=== PATIENT | male | born 1940 | race Caucasian/White ===

== ENCOUNTER 2023-03-25 14:44 | Inpatient (IN) | payer BC, MEDICARE ==
[2023-03-25 15:37] LABS: Bilirubin Neg (Negative); Blood, Urine 10 (Negative); Clarity Clear (Clear); Glucose, Urine (Dipstick) Normal (Negative); Ketone, Urine Negative (Negative); Leukocyte Negative (Negative); Nitrite Negative (Negative); Protein, Urine (Dipstick) 100 mg/dl (Neg-Trace); Urobilinogen Normal mg/dL (Less than 2)
[2023-03-25 15:41] LABS: #Basophils 0.1 10x3/uL (0.0-0.2); #Eosinphils 0.4 10x3/uL (0.0-0.5); #Monocytes 0.6 10x3/uL (0.0-1.1); #Neutrophils 4.9 10x3/uL (1.5-8.4); %Basophils 0.9 % (0.0-2.0); %Eosinophils 5.4 % (0.0-6.0); %Lymphocytes 11.9 % (18.0-47.0); %Monocytes 8.4 % (0.0-10.0); %Neutrophils 73.1 % (40.0-75.0); Hemoglobin 9.8 g/dL (13.5-17.5); Mean Corpuscular HGB CONC 33.2 g/dL (32.0-36.0); Mean Corpuscular Hemoglobin 29.2 pg (27.0-33.0); Mean Corpuscular Volume 87.8 fl (81.2-95.1); Mean Platelet Volume 8.9 fl (7.4-10.4); Platelet Count 140 10x3/uL (150-450); RBC Distribution Width 14.1 % (11.5-14.5); Red Blood Cell (RBC) Count 3.36 10x6/uL (4.32-5.72); White Blood Cell (WBC) Count 6.7 10x3/uL (3.5-10.5)
[2023-03-25 15:44] LABS: Actual Bicarbonate (HCO3v) 24.1 mEq/L (22-28); Base Excess -1.2 mEq/L (-2 - +2); Calcium, Ionized (venous) 1.17 mmol/L (1.16-1.32); Chloride (VBG) 104 mmol/L (98-106); Hematocrit-VBG 31 % (42.0-52.0); Hemoglobin (Hb) 10.7 g/dL (12.6-17.4); Potassium (VBG) 4.57 mmol/L (3.70-5.30); Puncture Site Other Site; RapidComm Collect By ER NURSE; Sodium 137.8 mmol/L (133-146); pH (venous) 7.372 (7.32-7.43)
[2023-03-25 15:45] LABS: Amphetamine Not Detected (NotDetected); Barbiturates Screen Not Detected (NotDetected); Benzodiazepine Screen Not Detected (NotDetected); Cocaine Metabolite Screen Not Detected (NotDetected); Methadone Not Detected (NotDetected); Methamphetamine Not Detected (NotDetected); Opiate Screen Not Detected (NotDetected); Oxycodone Screen Not Detected (NotDetected); Phencyclidine (PCP) Not Detected (NotDetected); RBC/HPF 0-3 HPF (0-3); Squamous Epithelial 0-3 HPF (0-3); THC/Cannabinoid Screen Not Detected (NotDetected); Tricyclic Screen Not Detected (NotDetected); WBC/HPF 0-3 HPF (0-3)
[2023-03-25 15:47] LABS: Bacteria/HPF 2+ HPF (None Seen); Transitional Epithelial 0-3 HPF (None Seen)
[2023-03-25 15:57] LABS: ALT (SGPT) 16 U/L (8-55); AST (SGOT) 21 U/L (5-34); Acetaminophen Less than 10.0 mcg/mL (10.0-30.0); Albumin 3.8 g/dL (3.4-4.8); Alcohol Less than 10 mg/dL (Less than 10); Alkaline Phosphatase 95 U/L (40-110); Anion Gap 14 mmol/L (10-20); BUN (Urea Nitrogen) 60 mg/dL (8.4-25.7); Bilirubin, Total 0.6 mg/dL (0.2-1.2); Calc. Creatinine Clearance 0 mL/min (70-130); Calcium 9.1 mg/dL (7.8-10.44); Carbon Dioxide 25 mmol/L (23-31); Chloride 106 mmol/L (98-107); Estimated GFR 20; Globulin 2.7 g/dL (2.4-3.5); Glucose 87 mg/dL (83-110); Magnesium 2.5 mg/dL (1.6-2.6); Protein, Total 6.5 g/dL (5.8-8.1); Salicylate Less than 8.0 mg/dL (15.0-30.0); Sodium 140 mmol/L (136-145)
[2023-03-25 16:18] LABS: CKMB 2.4 ng/mL (0-6.6)
[2023-03-25] MEDS ORDERED: Furosemide 40 MG/4 ML VIAL ONE (16:40)
[2023-03-25 17:54] LABS: Troponin I 0.098 ng/mL (< 0.028)
[2023-03-25] MEDS ORDERED: Heparin 5,000 UNITS/ML VIAL ONE (21:32)
[2023-03-25] MEDS: Heparin 5,000 UNITS/ML VIAL SC SCH (21:52)
[2023-03-26] MEDS ORDERED: Acetaminophen 325 MG TAB ONE (04:00)
[2023-03-26] MEDS ORDERED: diphenhydrAMINE 25 MG CAP ONE (04:00)
[2023-03-26 04:03] LABS: #Basophils 0.1 10x3/uL (0.0-0.2); #Eosinphils 0.4 10x3/uL (0.0-0.5); #Monocytes 0.6 10x3/uL (0.0-1.1); #Neutrophils 4.2 10x3/uL (1.5-8.4); %Basophils 0.9 % (0.0-2.0); %Eosinophils 6.8 % (0.0-6.0); %Lymphocytes 16.9 % (18.0-47.0); %Monocytes 9.8 % (0.0-10.0); %Neutrophils 65.3 % (40.0-75.0); Hemoglobin 9.8 g/dL (13.5-17.5); Mean Corpuscular HGB CONC 34.3 g/dL (32.0-36.0); Mean Corpuscular Hemoglobin 29.3 pg (27.0-33.0); Mean Corpuscular Volume 85.6 fl (81.2-95.1); Mean Platelet Volume 8.7 fl (7.4-10.4); Platelet Count 134 10x3/uL (150-450); RBC Distribution Width 13.8 % (11.5-14.5); Red Blood Cell (RBC) Count 3.34 10x6/uL (4.32-5.72); White Blood Cell (WBC) Count 6.4 10x3/uL (3.5-10.5)
[2023-03-26 04:13] LABS: ALT (SGPT) 18 U/L (8-55); AST (SGOT) 19 U/L (5-34); Albumin 3.8 g/dL (3.4-4.8); Alkaline Phosphatase 98 U/L (40-110); Anion Gap 14 mmol/L (10-20); BUN (Urea Nitrogen) 56 mg/dL (8.4-25.7); Bilirubin, Total 0.9 mg/dL (0.2-1.2); Calc. Creatinine Clearance 0 mL/min (70-130); Calcium 9.1 mg/dL (7.8-10.44); Carbon Dioxide 25 mmol/L (23-31); Chloride 105 mmol/L (98-107); Estimated GFR 21; Globulin 2.7 g/dL (2.4-3.5); Glucose 107 mg/dL (83-110); Protein, Total 6.5 g/dL (5.8-8.1); Sodium 140 mmol/L (136-145)
[2023-03-26] MEDS ORDERED: Furosemide 40 MG/4 ML VIAL SLOW IVP SCH ×2 (07:45→14:00)
[2023-03-26] MEDS ORDERED: Carvedilol 12.5 MG TAB PO SCH (08:00)
[2023-03-26] MEDS ORDERED: Furosemide 40 MG/4 ML VIAL ONE (08:48)
[2023-03-26] MEDS ORDERED: Heparin 5,000 UNITS/ML VIAL ONE (08:48)
[2023-03-26] MEDS ORDERED: FLUoxetine HCl 20 MG/5 ML UDCUP PO SCH (09:00)
[2023-03-26] MEDS: Heparin 5,000 UNITS/ML VIAL SC SCH ×3 (09:04→21:12)
[2023-03-26 11:01] VITALS: BMI 24.3
[2023-03-26] MEDS: FLUoxetine HCl 20 MG CAP PO SCH (11:24)
[2023-03-26] MEDS: Amlodipine 10 MG TAB PO SCH (11:24)
[2023-03-26] MEDS: Carvedilol 12.5 MG TAB PO SCH (16:09)
[2023-03-26 16:42] LABS: Anion Gap 17 mmol/L (10-20); BUN (Urea Nitrogen) 55 mg/dL (8.4-25.7); Calc. Creatinine Clearance 24 mL/min (70-130); Calcium 9.2 mg/dL (7.8-10.44); Carbon Dioxide 25 mmol/L (23-31); Chloride 103 mmol/L (98-107); Estimated GFR 20; Glucose 131 mg/dL (83-110); Potassium 4.1 mmol/L (3.5-5.1); Sodium 141 mmol/L (136-145)
[2023-03-26] MEDS ORDERED: Tamsulosin HCl 0.4 MG CAP PO SCH (21:00)
[2023-03-26] MEDS: rOPINIRole HCl 1 MG TAB PO SCH (21:12)
[2023-03-26] MEDS: Tamsulosin HCl 0.4 MG CAP PO SCH (21:12)
[2023-03-26] MEDS ORDERED: Haloperidol Lactate 5 MG/ML VIAL SLOW IVP SCH (22:00)
[2023-03-27] MEDS: Tamsulosin HCl 0.4 MG CAP PO SCH ×2 (00:51→20:08)
[2023-03-27] MEDS: rOPINIRole HCl 1 MG TAB PO SCH ×2 (00:52→20:08)
[2023-03-27 05:58] LABS: Anion Gap 19 mmol/L (10-20); BUN (Urea Nitrogen) 51 mg/dL (8.4-25.7); Calc. Creatinine Clearance 24 mL/min (70-130); Calcium 9.6 mg/dL (7.8-10.44); Carbon Dioxide 24 mmol/L (23-31); Chloride 103 mmol/L (98-107); Estimated GFR 20; Glucose 109 mg/dL (83-110); Potassium 3.8 mmol/L (3.5-5.1); Sodium 142 mmol/L (136-145)
[2023-03-27] MEDS ORDERED: Furosemide 40 MG/4 ML VIAL SLOW IVP SCH (06:00)
[2023-03-27 06:01] LABS: Troponin I 0.094 ng/mL (< 0.028)
[2023-03-27] MEDS: Atorvastatin Calcium 40 MG TAB PO SCH (09:35)
[2023-03-27] MEDS: Folic Acid 1 MG TAB PO SCH (09:35)
[2023-03-27] MEDS: Heparin 5,000 UNITS/ML VIAL SC SCH ×4 (09:35→20:12)
[2023-03-27] MEDS: FLUoxetine HCl 20 MG CAP PO SCH (09:35)
[2023-03-27] MEDS: Furosemide 40 MG TAB PO SCH (09:35)
[2023-03-27] MEDS: Thiamine 100 MG TAB PO SCH (09:35)
[2023-03-27] MEDS: Amlodipine 10 MG TAB PO SCH (09:35)
[2023-03-27] MEDS: Carvedilol 12.5 MG TAB PO SCH ×2 (09:35→18:04)
[2023-03-27] MEDS: cloNIDine 0.1 MG TAB PO SCH ×2 (09:35→20:08)
[2023-03-27] MEDS: Acetaminophen 325 MG TAB PO PRN ×2 (12:19→20:10)
[2023-03-27] MEDS ORDERED: Ondansetron PF 4 MG/2 ML Vial IVP PRN (14:01)
[2023-03-28 04:37] LABS: #Basophils 0.1 10x3/uL (0.0-0.2); #Eosinphils 0.3 10x3/uL (0.0-0.5); #Monocytes 0.7 10x3/uL (0.0-1.1); #Neutrophils 3.6 10x3/uL (1.5-8.4); %Basophils 0.8 % (0.0-2.0); %Eosinophils 5.3 % (0.0-6.0); %Lymphocytes 22.7 % (18.0-47.0); %Monocytes 11.7 % (0.0-10.0); %Neutrophils 59.2 % (40.0-75.0); Hemoglobin 9.8 g/dL (13.5-17.5); Mean Corpuscular HGB CONC 33.3 g/dL (32.0-36.0); Mean Corpuscular Hemoglobin 28.9 pg (27.0-33.0); Mean Corpuscular Volume 86.7 fl (81.2-95.1); Mean Platelet Volume 9.2 fl (7.4-10.4); Platelet Count 132 10x3/uL (150-450); RBC Distribution Width 14.1 % (11.5-14.5); Red Blood Cell (RBC) Count 3.39 10x6/uL (4.32-5.72)
[2023-03-28 05:07] LABS: Anion Gap 14 mmol/L (10-20); BUN (Urea Nitrogen) 54 mg/dL (8.4-25.7); Calc. Creatinine Clearance 20 mL/min (70-130); Carbon Dioxide 28 mmol/L (23-31); Chloride 104 mmol/L (98-107); Estimated GFR 16; Glucose 100 mg/dL (83-110); Potassium 3.8 mmol/L (3.5-5.1); Sodium 142 mmol/L (136-145)
[2023-03-28] MEDS: Thiamine 100 MG TAB PO SCH (08:43)
[2023-03-28] MEDS: cloNIDine 0.1 MG TAB PO SCH ×2 (08:43→22:16)
[2023-03-28] MEDS: Atorvastatin Calcium 40 MG TAB PO SCH (08:43)
[2023-03-28] MEDS: FLUoxetine HCl 20 MG CAP PO SCH (08:43)
[2023-03-28] MEDS: Furosemide 40 MG TAB PO SCH (08:43)
[2023-03-28] MEDS: Folic Acid 1 MG TAB PO SCH (08:43)
[2023-03-28] MEDS: Heparin 5,000 UNITS/ML VIAL SC SCH ×3 (08:44→22:16)
[2023-03-28] MEDS: Tamsulosin HCl 0.4 MG CAP PO SCH (22:15)
[2023-03-28] MEDS: Acetaminophen 325 MG TAB PO PRN (22:15)
[2023-03-28] MEDS: rOPINIRole HCl 1 MG TAB PO SCH (22:16)
[2023-03-29] MEDS: Heparin 5,000 UNITS/ML VIAL SC SCH ×3 (08:44→21:37)
[2023-03-29] MEDS: Atorvastatin Calcium 40 MG TAB PO SCH (08:44)
[2023-03-29] MEDS: cloNIDine 0.1 MG TAB PO SCH ×2 (08:44→21:36)
[2023-03-29] MEDS: Folic Acid 1 MG TAB PO SCH (08:44)
[2023-03-29] MEDS: FLUoxetine HCl 20 MG CAP PO SCH (08:44)
[2023-03-29] MEDS: Furosemide 40 MG TAB PO SCH (08:44)
[2023-03-29] MEDS: Thiamine 100 MG TAB PO SCH (08:44)
[2023-03-29] MEDS ORDERED: Melatonin 3 MG TAB PO SCH (21:00)
[2023-03-29] MEDS: rOPINIRole HCl 1 MG TAB PO SCH (21:36)
[2023-03-29] MEDS: Tamsulosin HCl 0.4 MG CAP PO SCH (21:36)
[2023-03-30 04:55] LABS: #Basophils 0.1 10x3/uL (0.0-0.2); #Eosinphils 0.5 10x3/uL (0.0-0.5); #Monocytes 0.6 10x3/uL (0.0-1.1); #Neutrophils 4.2 10x3/uL (1.5-8.4); %Basophils 0.8 % (0.0-2.0); %Eosinophils 7.9 % (0.0-6.0); %Lymphocytes 15.8 % (18.0-47.0); %Monocytes 9.6 % (0.0-10.0); %Neutrophils 65.6 % (40.0-75.0); Hemoglobin 10.9 g/dL (13.5-17.5); Mean Corpuscular HGB CONC 33.5 g/dL (32.0-36.0); Mean Corpuscular Hemoglobin 28.6 pg (27.0-33.0); Mean Corpuscular Volume 85.3 fl (81.2-95.1); Mean Platelet Volume 9.1 fl (7.4-10.4); Platelet Count 130 10x3/uL (150-450); RBC Distribution Width 13.9 % (11.5-14.5); Red Blood Cell (RBC) Count 3.81 10x6/uL (4.32-5.72); White Blood Cell (WBC) Count 6.3 10x3/uL (3.5-10.5)
[2023-03-30 05:08] LABS: Anion Gap 16 mmol/L (10-20); BUN (Urea Nitrogen) 61 mg/dL (8.4-25.7); Calc. Creatinine Clearance 22 mL/min (70-130); Carbon Dioxide 28 mmol/L (23-31); Chloride 100 mmol/L (98-107); Estimated GFR 19; Glucose 124 mg/dL (83-110); Sodium 140 mmol/L (136-145)
[2023-03-30] MEDS: Atorvastatin Calcium 40 MG TAB PO SCH (07:57)
[2023-03-30] MEDS: Folic Acid 1 MG TAB PO SCH (07:57)
[2023-03-30] MEDS: Thiamine 100 MG TAB PO SCH (07:57)
[2023-03-30] MEDS: Furosemide 40 MG TAB PO SCH (07:58)
[2023-03-30] MEDS: FLUoxetine HCl 20 MG CAP PO SCH (07:58)
[2023-03-30] MEDS ORDERED: Carvedilol 3.125 MG TAB PO SCH (08:00)
[2023-03-30] MEDS: Heparin 5,000 UNITS/ML VIAL SC SCH (08:02)
[2023-03-30] MEDS ORDERED: Polyethylene Glycol 3350 17 GM Packet PO PRN (11:20)
[2023-03-30] MEDS ORDERED: Calcitriol 0.25 MCG CAP PO SCH (12:00)
[2023-03-30 12:18] VITALS: BP 150/65; TEMP 96.9
[2023-03-31] MEDS ORDERED: Allopurinol 100 MG TAB PO SCH (09:00)
[2023-04-01] MEDS ORDERED: Calcitriol 0.25 MCG CAP PO SCH (09:00)
== END 2023-03-30 16:05 | DRG 884 ==
LOC: CSHERS 14:44 → SUATTDRO 14:44 → CSHERHOLD 18:30 → CSHTELE 03-26 09:06
PROVIDERS: ADMIT Family Medicine; ATTEND Emergency Medicine
PROC: 4A033R1 Measurement of Arterial Saturation, Peripheral, Percutaneous Approach (ICD-10-PCS; principal; 2023-03-25)
DX: F01.50 Vascular dementia, unspecified severity, without behavioral disturbance, psychotic disturbance, mood disturbance, and anxiety (principal); F05 Delirium due to known physiological condition; N18.4 Chronic kidney disease, stage 4 (severe); I13.0 Hypertensive heart and chronic kidney disease with heart failure and stage 1 through stage 4 chronic kidney disease, or unspecified chronic kidney disease; I50.22 Chronic systolic (congestive) heart failure; N17.9 Acute kidney failure, unspecified; R00.1 Bradycardia, unspecified; E11.22 Type 2 diabetes mellitus with diabetic chronic kidney disease; D63.1 Anemia in chronic kidney disease; M10.9 Gout, unspecified; E66.9 Obesity, unspecified; E11.42 Type 2 diabetes mellitus with diabetic polyneuropathy; Z79.899 Other long term (current) drug therapy; Z88.6 Allergy status to analgesic agent; Z88.1 Allergy status to other antibiotic agents; Z68.24 Body mass index [BMI] 24.0-24.9, adult; Z78.1 Physical restraint status; I25.10 Atherosclerotic heart disease of native coronary artery without angina pectoris
CPT/HCPCS: 36415; 36416; 70450; 70551; 71045; 80048; 80053; 80306; 80307; 81003; 81015; 82140; 82553; 82607; 82805; 83605; 83735; 83880; 84425; 84443; 84484; 85025; 93005; 93010; 93306; 94760; 96374; J1630; J1644; J1940; J2405